=== PATIENT | female | born 1990 | race Caucasian/White ===

== ENCOUNTER 2017-01-19 17:42 | Emergency (ER) | payer OTHER ==
[2017-01-19 17:49] VITALS: BP 136/84; PULSE 88; RESP 18; TEMP 97.5
--- NOTE | 2017-01-19 18:14 | ED ---
Lower Extremity Injury HPI - General Chief Complaint: Extremity Injury, Lower Stated Complaint: ankle pain Time Seen by Provider: 01/19/17 18:03 Source: patient, RN notes reviewed Mode of arrival: ambulatory Limitations: no limitations - History of Present Illness Initial Comments: 26-year-old female presents emergency department with a chief complaint of right ankle injury. Patient states he was at the park on and she believes she sprained her ankle. Patient states that she's had pain and tenderness numbness over the lateral aspect. Patient states that it feels unsteady when walking. Patient states she has pain nausea vomiting with this. Patient states she has not had any other symptoms with this. Patient states she was concerned due to the pain so she thought that she should be reevaluated. Patient denies any recent fever, chills, shortness of breath, chest pain, back pain, abdominal pain, nausea vomiting, numbness or tingling, dysuria or hematuria, constipation or diarrhea, headaches or visual changes, or any other current symptoms. - Related Data Home Medications Medication Instructions Recorded Confirmed Acetaminophen Tab [Tylenol Tab] 325 mg PO Q4H PRN 01/19/17 01/19/17 Allergies Allergy/AdvReac Type Severity Reaction Status Date / Time No Known Allergies Allergy Verified 01/19/17 18:07 Review of Systems ROS Statement: Those systems with pertinent positive or pertinent negative responses have been documented in the HPI. ROS Other: All systems not noted in ROS Statement are negative. Past Medical History Past Medical History: No Reported History History of Any Multi-Drug Resistant Organisms: None Reported Past Surgical History: No Surgical Hx Reported Past Psychological History: No Psychological Hx Reported Smoking Status: Never smoker Past Alcohol Use History: None Reported Past Drug Use History: None Reported General Exam - General Exam Comments Initial Comments: General: The patient is awake and alert, in no distress, and does not appear acutely ill. Neck: The neck is supple, there is no tenderness. Cardiovascular: There is a regular rate and rhythm. No murmur, rub or gallop is appreciated. Respiratory: Lungs are clear to auscultation, respirations are non-labored, breath sounds are equal. No wheezes, stridor, rales, or rhonchi. Musculoskeletal: Sensation intact with 2+ pulses in her sign. Full Motion of right knee and right ankle. Patient has some tenderness over the lateral malleolus without significant swelling noted. 5 out of 5 muscle strength testing throughout. Patient is able to ambulate. Neurological: CN II-XII intact, There are no obvious motor or sensory deficits. Coordination appears grossly intact. Speech is normal. Skin: Skin is warm and dry and no rashes or lesions are noted. Psychiatric: Normal mood and affect. Limitations: no limitations Course Vital Signs 01/19/17 17:47 Temperature 97.5 F L Pulse Rate 88 Respiratory 18 Rate Blood Pressure 136/84 O2 Sat by Pulse 97 Oximetry Medical Decision Making - Medical Decision Making 26-year-old female presents with right ankle pain. At this time patient's x- ray is reviewed and negative. We discussed patient most likely has a right ankle sprain. We discussed follow-up return parameters all patient's questions. She stated that she understood and she is in agreement plan. This time she will be discharged home. - Radiology Data Radiology results: report reviewed, image reviewed Disposition Clinical Impression: Right ankle sprain Disposition: HOME SELF-CARE Condition: Stable Instructions: Ankle Sprain (ED) Additional Instructions: Please use medication as discussed. Please follow up with family doctor if symptoms have not improved over the next two days. Please return to the emergency room if your symptoms increase or worsen or for any other concerns. Referrals: Paige Brock MD [STAFF PHYSICIAN] - 1-2 days Time of Disposition: 18:43
--- NOTE | 2017-01-19 18:36 | XR ---
EXAMINATION TYPE: XR ankle complete RT DATE OF EXAM: 01/19/2017 6:24 PM COMPARISON: NONE HISTORY: 26 year-old female right ankle pain and swelling TECHNIQUE: 3 views FINDINGS: 5 mm corticated bone fragment below the fibula could represent a accessory ossicle or chronic ununite d fracture fragment related to remote injury. Large 2.5 cm interosseous lipoma or ganglion within the calcaneal body. There is a lucency seen along the posterior talus that could represent an os trigonum. Mild adjacent soft tissue swelling is present. Additional ankle joint effusion. Ankle mortise remains congruent with preservation of the distal tibiofibular overlap. Talar dome is i ntact. Small delineation to the Achilles tendon. IMPRESSION: 1. Lucency seen at the posterior talus could represent an os trigonum. However, if pain localizes to this area and there was injury, a nondisplaced Nunn fracture is an alternative consideration. 2. Large 2.5 cm intraosseous lipoma or cyst within the calcaneal body. 3. Nonspecific ankle joint effusion.
== END 2017-01-19 18:50 | disposition home or self-care (01) ==
LOC: EC 17:42
DX: S93.401A Sprain of unspecified ligament of right ankle, initial encounter (principal); R11.2 Nausea with vomiting, unspecified; X58.XXXA Exposure to other specified factors, initial encounter; Y92.830 Public park as the place of occurrence of the external cause
CPT/HCPCS: 99283

== ENCOUNTER 2017-02-25 15:35 | Emergency (ER) | payer OTHER ==
[2017-02-25] MEDS ORDERED: ONDANSETRON 4 MG/2 ML VIAL IVP STA (15:53)
[2017-02-25] MEDS ORDERED: SODIUM CHLORIDE 0.9% 1,000 ML IV STA (15:53)
--- NOTE | 2017-02-25 15:56 | ED ---
General Adult HPI - General Chief complaint: Nausea/Vomiting/Diarrhea Stated complaint: fatigue, Back pain,nausea Time Seen by Provider: 02/25/17 15:53 Source: patient, RN notes reviewed, old records reviewed Mode of arrival: ambulatory Limitations: no limitations - History of Present Illness Initial comments: This is a 26-year-old female the ER for evaluation today. Patient's reevaluation regard to of symptoms, symptoms included bowel pain with nausea and vomiting. Patient has tried 2 different antibiotics as well as antiemetics with no help. No travel history no fevers, no family members with similar similar sick symptoms, and patient has no known sick contacts - Related Data Home Medications Medication Instructions Recorded Confirmed Azithromycin [Zithromax Z-pack] See Taper PO DAILY 02/25/17 02/25/17 Allergies Allergy/AdvReac Type Severity Reaction Status Date / Time No Known Allergies Allergy Verified 02/25/17 15:48 Review of Systems ROS Statement: Those systems with pertinent positive or pertinent negative responses have been documented in the HPI. ROS Other: All systems not noted in ROS Statement are negative. Past Medical History Past Medical History: No Reported History History of Any Multi-Drug Resistant Organisms: None Reported Past Surgical History: No Surgical Hx Reported Past Psychological History: No Psychological Hx Reported Smoking Status: Never smoker Past Alcohol Use History: None Reported Past Drug Use History: None Reported General Exam Limitations: no limitations General appearance: alert, in no apparent distress Head exam: Present: atraumatic, normocephalic, normal inspection Eye exam: Present: normal appearance, PERRL, EOMI. Absent: scleral icterus, conjunctival injection, periorbital swelling ENT exam: Present: normal exam, mucous membranes moist Neck exam: Present: normal inspection. Absent: tenderness, meningismus, lymphadenopathy Respiratory exam: Present: normal lung sounds bilaterally. Absent: respiratory distress, wheezes, rales, rhonchi, stridor Cardiovascular Exam: Present: regular rate, normal rhythm, normal heart sounds. Absent: systolic murmur, diastolic murmur, rubs, gallop, clicks GI/Abdominal exam: Present: soft, normal bowel sounds. Absent: distended, tenderness, guarding, rebound, rigid Extremities exam: Present: normal inspection, full ROM, normal capillary refill. Absent: tenderness, pedal edema, joint swelling, calf tenderness Back exam: Present: normal inspection Neurological exam: Present: alert, oriented X3, CN II-XII intact Psychiatric exam: Present: normal affect, normal mood Skin exam: Present: warm, dry, intact, normal color. Absent: rash Course Vital Signs 02/25/17 02/25/17 15:40 16:45 Temperature 98.1 F 98.5 F Pulse Rate 85 80 Respiratory 18 16 Rate Blood Pressure 135/99 134/74 O2 Sat by Pulse 98 99 Oximetry - Reevaluation(s) Reevaluation #1: 02/25/17 17:28 Patient with no active vomiting on emergency room Medical Decision Making - Medical Decision Making 26 female here with nausea alone, appears to occur after meals, patient given antihistamine, GI medication, no acute distress labwork is normal ultrasound of gallbladder is negative, patient will follow up with GI for further evaluation of dietary issues, nausea - Lab Data Result diagrams: 02/25/17 16:15 02/25/17 16:15 Lab Results 02/25/17 02/25/17 02/25/17 Range/Units 16:15 16:15 16:15 WBC 5.1 (3.8-10.6) k/uL RBC 4.86 (3.80-5.40) m/uL Hgb 14.3 (11.4-16.0) gm/dL Hct 41.7 (34.0-46.0) % MCV 85.8 (80.0-100.0) fL MCH 29.4 (25.0-35.0) pg MCHC 34.3 (31.0-37.0) g/dL RDW 13.9 (11.5-15.5) % Plt Count 240 (150-450) k/uL Neutrophils % 66 % Lymphocytes % 24 % Monocytes % 7 % Eosinophils % 2 % Basophils % 1 % Neutrophils # 3.4 (1.3-7.7) k/uL Lymphocytes # 1.2 (1.0-4.8) k/uL Monocytes # 0.3 (0-1.0) k/uL Eosinophils # 0.1 (0-0.7) k/uL Basophils # 0.0 (0-0.2) k/uL PT (9.0-12.0) sec INR (<1.1) APTT (22.0-30.0) sec Sodium 141 (137-145) mmol/L Potassium 4.2 (3.5-5.1) mmol/L Chloride 105 (98-107) mmol/L Carbon Dioxide 26 (22-30) mmol/L Anion Gap 10 mmol/L BUN 10 (7-17) mg/dL Creatinine 0.71 (0.52-1.04) mg/dL Est GFR (MDRD) Af Amer >60 (>60 ml/min/1.73 sqM) Est GFR (MDRD) Non-Af >60 (>60 ml/min/1.73 sqM) Glucose 92 (74-99) mg/dL Plasma Lactic Acid Denny (0.7-2.0) mmol/L Calcium 9.7 (8.4-10.2) mg/dL Phosphorus 3.3 (2.5-4.5) mg/dL Magnesium 1.9 (1.6-2.3) mg/dL Total Bilirubin 0.7 (0.2-1.3) mg/dL AST 19 (14-36) U/L ALT 25 (9-52) U/L Alkaline Phosphatase 90 (38-126) U/L Total Creatine Kinase 58 (30-135) U/L CK-MB (CK-2) 0.4 (0.0-2.4) ng/mL CK-MB (CK-2) Rel Index 0.7 Troponin I <0.012 (0.000-0.034) ng/mL Total Protein 7.7 (6.3-8.2) g/dL Albumin 4.6 (3.5-5.0) g/dL Lipase 63 (23-300) U/L Urine Color Urine Appearance (Clear) Urine pH (5.0-8.0) Ur Specific [place] (1.001-1.035) Urine Protein (Negative) Urine Glucose (UA) (Negative) Urine Ketones (Negative) Urine Blood (Negative) Urine Nitrite (Negative) Urine Bilirubin (Negative) Urine Urobilinogen (<2.0) mg/dL Ur Leukocyte Esterase (Negative) Urine HCG, Qual (Not Detectd) 02/25/17 02/25/17 02/25/17 Range/Units 16:15 16:15 16:15 WBC (3.8-10.6) k/uL RBC (3.80-5.40) m/uL Hgb (11.4-16.0) gm/dL Hct (34.0-46.0) % MCV (80.0-100.0) fL MCH (25.0-35.0) pg MCHC (31.0-37.0) g/dL RDW (11.5-15.5) % Plt Count (150-450) k/uL Neutrophils % % Lymphocytes % % Monocytes % % Eosinophils % % Basophils % % Neutrophils # (1.3-7.7) k/uL Lymphocytes # (1.0-4.8) k/uL Monocytes # (0-1.0) k/uL Eosinophils # (0-0.7) k/uL Basophils # (0-0.2) k/uL PT 10.2 (9.0-12.0) sec INR 1.0 (<1.1) APTT 26.1 (22.0-30.0) sec Sodium (137-145) mmol/L Potassium (3.5-5.1) mmol/L Chloride (98-107) mmol/L Carbon Dioxide (22-30) mmol/L Anion Gap mmol/L BUN (7-17) mg/dL Creatinine (0.52-1.04) mg/dL Est GFR (MDRD) Af Amer (>60 ml/min/1.73 sqM) Est GFR (MDRD) Non-Af (>60 ml/min/1.73 sqM) Glucose (74-99) mg/dL Plasma Lactic Acid Denny (0.7-2.0) mmol/L Calcium (8.4-10.2) mg/dL Phosphorus (2.5-4.5) mg/dL Magnesium (1.6-2.3) mg/dL Total Bilirubin (0.2-1.3) mg/dL AST (14-36) U/L ALT (9-52) U/L Alkaline Phosphatase (38-126) U/L Total Creatine Kinase (30-135) U/L CK-MB (CK-2) (0.0-2.4) ng/mL CK-MB (CK-2) Rel Index Troponin I (0.000-0.034) ng/mL Total Protein (6.3-8.2) g/dL Albumin (3.5-5.0) g/dL Lipase (23-300) U/L Urine Color Light Yellow Urine Appearance Clear (Clear) Urine pH 7.0 (5.0-8.0) Ur Specific [place] 1.008 (1.001-1.035) Urine Protein Negative (Negative) Urine Glucose (UA) Negative (Negative) Urine Ketones Negative (Negative) Urine Blood Negative (Negative) Urine Nitrite Negative (Negative) Urine Bilirubin Negative (Negative) Urine Urobilinogen <2.0 (<2.0) mg/dL Ur Leukocyte Esterase Negative (Negative) Urine HCG, Qual Not Detected (Not Detectd) 02/25/17 Range/Units 16:15 WBC (3.8-10.6) k/uL RBC (3.80-5.40) m/uL Hgb (11.4-16.0) gm/dL Hct (34.0-46.0) % MCV (80.0-100.0) fL MCH (25.0-35.0) pg MCHC (31.0-37.0) g/dL RDW (11.5-15.5) % Plt Count (150-450) k/uL Neutrophils % % Lymphocytes % % Monocytes % % Eosinophils % % Basophils % % Neutrophils # (1.3-7.7) k/uL Lymphocytes # (1.0-4.8) k/uL Monocytes # (0-1.0) k/uL Eosinophils # (0-0.7) k/uL Basophils # (0-0.2) k/uL PT (9.0-12.0) sec INR (<1.1) APTT (22.0-30.0) sec Sodium (137-145) mmol/L Potassium (3.5-5.1) mmol/L Chloride (98-107) mmol/L Carbon Dioxide (22-30) mmol/L Anion Gap mmol/L BUN (7-17) mg/dL Creatinine (0.52-1.04) mg/dL Est GFR (MDRD) Af Amer (>60 ml/min/1.73 sqM) Est GFR (MDRD) Non-Af (>60 ml/min/1.73 sqM) Glucose (74-99) mg/dL Plasma Lactic Acid Denny 1.1 (0.7-2.0) mmol/L Calcium (8.4-10.2) mg/dL Phosphorus (2.5-4.5) mg/dL Magnesium (1.6-2.3) mg/dL Total Bilirubin (0.2-1.3) mg/dL AST (14-36) U/L ALT (9-52) U/L Alkaline Phosphatase (38-126) U/L Total Creatine Kinase (30-135) U/L CK-MB (CK-2) (0.0-2.4) ng/mL CK-MB (CK-2) Rel Index Troponin I (0.000-0.034) ng/mL Total Protein (6.3-8.2) g/dL Albumin (3.5-5.0) g/dL Lipase (23-300) U/L Urine Color Urine Appearance (Clear) Urine pH (5.0-8.0) Ur Specific [place] (1.001-1.035) Urine Protein (Negative) Urine Glucose (UA) (Negative) Urine Ketones (Negative) Urine Blood (Negative) Urine Nitrite (Negative) Urine Bilirubin (Negative) Urine Urobilinogen (<2.0) mg/dL Ur Leukocyte Esterase (Negative) Urine HCG, Qual (Not Detectd) - Radiology Data Radiology results: report reviewed (Ultrasound gallbladder is negative for acute disease), image reviewed Disposition Clinical Impression: Nausea & vomiting Disposition: HOME SELF-CARE Condition: Good Instructions: Acute Nausea and Vomiting (ED) Referrals: Meng Katz MD [STAFF PHYSICIAN] - 1-2 days
[2017-02-25 16:32] LABS: Appearance,Urine Clear (Clear); Bilirubin,Urine Negative (Negative); Glucose,Urine (UA) Negative (Negative); Ketones,Urine Negative (Negative); Leukocyte Esterase,Urine Negative (Negative); Nitrite,Urine Negative (Negative); Protein,Urine Negative (Negative); Specific Gravity,Urine 1.008 (1.001-1.035); UA Billing (MACRO vs. MICRO) CHEM; Urobilinogen,Urine <2.0 mg/dL (<2.0)
[2017-02-25 16:34] LABS: Basophils % (A) 1 %; CH 29.1; CHCM 34.1; Eosinophils # (A) 0.1 k/uL (0-0.7); Eosinophils % (A) 2 %; HCT 41.7 % (34.0-46.0); HDW 2.51; HGB 14.3 gm/dL (11.4-16.0); Luc # (Auto) 0.06; Luc % (Auto) 1; Lymphocytes # (A) 1.2 k/uL (1.0-4.8); Lymphocytes % (A) 24 %; MCH 29.4 pg (25.0-35.0); MCHC 34.3 g/dL (31.0-37.0); MCV 85.8 fL (80.0-100.0); Mean Platelet Volume 9.2; Monocytes # (A) 0.3 k/uL (0-1.0); Monocytes % (A) 7 %; Neutrophils # (A) 3.4 k/uL (1.3-7.7); Neutrophils % (A) 66 %; RBC 4.86 m/uL (3.80-5.40); RDW 13.9 % (11.5-15.5); WBC 5.1 k/uL (3.8-10.6); WBC (Perox) 4.76
[2017-02-25 16:39] LABS: Partial Thromboplastin Time 26.1 sec (22.0-30.0); Prothrombin Time 10.2 sec (9.0-12.0)
[2017-02-25 16:40] LABS: ALT 25 U/L (9-52); AST 19 U/L (14-36); Alkaline Phosphatase 90 U/L (38-126); Anion Gap 10 mmol/L; Blood Urea Nitrogen 10 mg/dL (7-17); Calcium 9.7 mg/dL (8.4-10.2); Carbon Dioxide 26 mmol/L (22-30); Chloride 105 mmol/L (98-107); Glucose 92 mg/dL (74-99); Magnesium 1.9 mg/dL (1.6-2.3); Non-African American GFR(MDRD) >60 (>60 ml/min/1.73 sqM); Phosphorous 3.3 mg/dL (2.5-4.5); Potassium 4.2 mmol/L (3.5-5.1); Sodium 141 mmol/L (137-145); Total Bilirubin 0.7 mg/dL (0.2-1.3); Total Protein 7.7 g/dL (6.3-8.2)
[2017-02-25 16:46] VITALS: RESP 16
[2017-02-25 16:50] LABS: Creatine Kinase 58 U/L (30-135)
[2017-02-25 17:03] LABS: Creatine Kinase MB 0.4 ng/mL (0.0-2.4); Troponin I <0.012 ng/mL (0.000-0.034)
--- NOTE | 2017-02-25 17:27 | US ---
EXAMINATION TYPE: US gallbladder DATE OF EXAM: 02/25/2017 COMPARISON: NONE CLINICAL HISTORY: Pain. Nausea,diarrhea, abdominal pain after eating EXAM MEASUREMENTS: Liver Length: 16.9 cm Gallbladder Wall: 0.3 cm CBD: 0.4 cm Right Kidney: 11.0 x 4.8 x 5.3 cm Technical limitations due to patient's body habitus and large amount of overlying bowel content Pancreas: Obscured by bowel gas Liver: only visualized intercostally, upper limits of normal in size Gallbladder: no evidence of stones Evidence for sonographic Johnson's sign: no CBD: appears wnl Right Kidney: no evidence of hydronephrosis IMPRESSION: No significant abnormality seen.
[2017-02-25 18:13] VITALS: BP 121/71; PULSE 81; TEMP 97.9
== END 2017-02-25 18:16 | disposition home or self-care (01) ==
LOC: EC 15:35
DX: R11.2 Nausea with vomiting, unspecified (principal); R10.9 Unspecified abdominal pain; M54.9 Dorsalgia, unspecified; R53.83 Other fatigue; R19.7 Diarrhea, unspecified
CPT/HCPCS: 36415; 80053; 82550; 82553; 83605; 83690; 83735; 84100; 84484; 85025; 85610; 85730; 81003; 81025; 87086; 76705; 99284; 96374; 96361; J2405

== ENCOUNTER → 2018-01-06 | Outpatient (CLI) | payer OTHER ==
--- NOTE | 2018-01-06 15:54 | US ---
EXAMINATION TYPE: Transabdominal DATE OF EXAM: 12/02/17 COMPARISON: NONE CLINICAL HISTORY: 27-year-old female Z36 Confirm Dates. Unsure of LMP EXAM PERFORMED: OB transabdominal FINDINGS: EXAM MEASUREMENTS: GESTATIONAL AGE / DATING Physician Established: Not yet established Dates by LMP: LMP unknown Dates by First Scan: No prior Dates by Current Scan for: (9 weeks/0 days) EDC: 08/11/2018 MATERNAL ANATOMY Uterus: 9.6 x 6.0 x 7.3 cm Right Ovary: 3.7 x 2.9 x 2.4cm Left Ovary: 2.7 x 2.2 x 2.5cm, 1.3cm cystic area noted Post CDS / Adnexa: wnl Presence of free fluid: no Presence of corpus luteal cyst: yes, 2.5cm right ovary Presence of subchorionic bleed: no GESTATION / SURVEY CRL: 2.3 (9 weeks/0 days) MSD: wnl Yolk Sac (normal less than 6mm): not seen Heart Rate: 182 bpm Rhythm: Normal IUP: Viable IUP Date of LMP: sometime in October IMPRESSION: 1. Single live intrauterine with gestational age of 9 weeks 0 days by crown-rump length. 2. Mild tachycardia (182 BPM). Short interval follow-up can be performed to ensure well-b eing. 3. Complete survey recommended at 18-20 weeks.
== END | disposition home or self-care (01) ==
LOC: RADUSWWP 14:10
PROVIDERS: ATTEND Obstetrics & Gynecology
DX: O76 Abnormality in fetal heart rate and rhythm complicating labor and delivery (principal); Z3A.09 9 weeks gestation of pregnancy
CPT/HCPCS: 76801

== ENCOUNTER → 2018-05-05 | Outpatient (CLI) | payer OTHER ==
[2018-05-05 13:41] LABS: HCT 36.1 % (34.0-46.0); HGB 11.9 gm/dL (11.4-16.0); MCH 30.5 pg (25.0-35.0); MCHC 33.1 g/dL (31.0-37.0); MCV 92.2 fL (80.0-100.0); Mean Platelet Volume 8.9; Platelet Count 214 k/uL (150-450); RBC 3.92 m/uL (3.80-5.40); RDW 14.6 % (11.5-15.5); WBC 6.5 k/uL (3.8-10.6)
== END | disposition home or self-care (01) ==
LOC: LABWHC1 12:10
PROVIDERS: ATTEND Obstetrics & Gynecology
DX: Z34.82 Encounter for supervision of other normal pregnancy, second trimester (principal); Z3A.00 Weeks of gestation of pregnancy not specified
CPT/HCPCS: 36415; 82950; 85027

== ENCOUNTER 2018-08-10 06:07 | Inpatient (IN) | payer OTHER ==
[2018-08-10] MEDS ORDERED: CITRIC ACID-SODIUM CITRATE 15 ML CUP PO ONE (06:24)
[2018-08-10] MEDS ORDERED: ceFAZolin IN SWFI 2 GM/20 ML SYRINGE IVP ONE (06:24)
[2018-08-10] MEDS ORDERED: LACTATED RINGERS 1,000 ML IV ONE (06:32)
[2018-08-10] MEDS: LACTATED RINGERS 1,000 ML IV SCH ×2 (06:38→21:51)
[2018-08-10 06:42] VITALS: BMI 39.4
[2018-08-10 06:43] LABS: Basophils % (A) 0 %; Eosinophils # (A) 0.1 k/uL (0-0.7); Eosinophils % (A) 2 %; HCT 33.5 % (34.0-46.0); HGB 11.1 gm/dL (11.4-16.0); Hypochromasia Slight; Lymphocytes # (A) 1.3 k/uL (1.0-4.8); Lymphocytes % (A) 30 %; MCHC 33.1 g/dL (31.0-37.0); MCV 87.5 fL (80.0-100.0); Mean Platelet Volume 9.5; Monocytes # (A) 0.2 k/uL (0-1.0); Monocytes % (A) 4 %; Neutrophils # (A) 2.7 k/uL (1.3-7.7); Neutrophils % (A) 62 %; Platelet Count 203 k/uL (150-450); Poikilocytosis Slight; RBC 3.83 m/uL (3.80-5.40); RDW 14.6 % (11.5-15.5); WBC 4.4 k/uL (3.8-10.6)
[2018-08-10] MEDS ORDERED: MORPHINE SULFATE (PF) 0.3 MG/0.3 ML SYR ONE (08:00)
[2018-08-10] MEDS ORDERED: NALBUPHINE 10 MG/ML VIAL (10ML MDV) ONE (08:00)
[2018-08-10] MEDS ORDERED: KETOROLAC 30 MG/ML 1 ML VIAL ONE (08:00)
[2018-08-10] MEDS ORDERED: ONDANSETRON 4 MG/2 ML VIAL ONE (08:00)
--- NOTE | 2018-08-10 08:53 | P.HPOB ---
History of Present Illness H&P Date: 08/10/18 Chief Complaint: primary low transverse 27 year old presents at 39 weeks 6 days for primary low transverse c- section for breech. The baby also has bilateral dilated renal pelvises. Review of Systems All systems: negative Constitutional: Denies chills, Denies fever Eyes: denies blurred vision, denies pain Ears, nose, mouth and throat: Denies headache, Denies sore throat Cardiovascular: Denies chest pain, Denies shortness of breath Respiratory: Denies cough Gastrointestinal: Denies abdominal pain, Denies diarrhea, Denies nausea, Denies vomiting Genitourinary: Denies dysuria, Denies hematuria Musculoskeletal: Denies myalgias Integumentary: Denies pruritus, Denies rash Neurological: Denies numbness, Denies weakness Psychiatric: Denies anxiety, Denies depression Endocrine: Denies fatigue, Denies weight change Past Medical History Past Medical History: No Reported History Additional Past Medical History / Comment(s): OB history: First was a vaginal delivery. This is her second and she has had care with nd since 8 weeks. O+, abs neg, Rub Imm, RPR NR, HEp B neg. weighted renal pelvises since her 20 week ultrasound. She's been getting biophysical profiles and NSTs which of all been reactive. Latest ultrasound showed 23 mm and 24 mm dilated renal pelvises respectively. History of Any Multi-Drug Resistant Organisms: None Reported Past Surgical History: No Surgical Hx Reported Additional Past Anesthesia/Blood Transfusion Reaction / Comment(s): never had anesthesia, no family problems with it Past Psychological History: No Psychological Hx Reported Smoking Status: Never smoker Past Alcohol Use History: None Reported Past Drug Use History: None Reported - Past Family History Mother Family Medical History: No Reported History Medications and Allergies Home Medications Medication Instructions Recorded Confirmed Type Pnv No.95/Ferrous Fum/Folic AC 1 each PO DAILY 08/06/18 08/10/18 History [ Multivitamin Tablet] Allergies Allergy/AdvReac Type Severity Reaction Status Date / Time No Known Allergies Allergy Verified 08/10/18 06:23 Exam Osteopathic Statement: *. No significant issues noted on an osteopathic structural exam other than those noted in the History and Physical/Consult. Vital Signs Temp Pulse Resp BP Pulse Ox 08/10/18 06:22 96 F L 102 H 16 139/87 100 Intake and Output 08/09/18 08/10/18 08/10/18 22:59 06:59 14:59 Other: Weight 104.326 kg Heart: Regular rate and rhythm Lungs: Clear to auscultation bilaterally Abdomen: Soft, nontender Extremities: Negative Homans sign Results Result Diagrams: 08/10/18 06:30 Abnormal Lab Results - Last 24 Hours (Table) 08/10/18 Range/Units 06:30 Hgb 11.1 L (11.4-16.0) gm/dL Hct 33.5 L (34.0-46.0) % Assessment and Plan (1) Breech presentation Current Visit: Yes Status: Acute Code(s): O32.1XX0 - MATERNAL CARE FOR BREECH PRESENTATION, UNSP SNOMED Code(s): 7343554 Plan: 1. Primary low transverse
--- NOTE | 2018-08-10 08:54 | P.OP ---
Date of Procedure: 08/10/18 Preoperative Diagnosis: 1. Breech presentation 2. Bilateral dilated renal pelvises Postoperative Diagnosis: Same Procedure(s) Performed: Primary low transverse Anesthesia: spinal Surgeon: Selena Ortega Substation Electrician Supervisor #1: Connor Hood Estimated Blood Loss (ml): 700 IV fluids (ml): 1,000 Urine output (ml): 100 Pathology: none sent Condition: stable Disposition: PACU Operative Findings: Viable male, Apgars 8, 9, weight 9 lbs. 2 oz. in footling breech presentation. Normal uterus tubes, ovaries. Description of Procedure: Patient was taken to the operating room where spinal anesthesia was found be adequate. She was prepped and draped in normal sterile fashion in dorsal supine position with a leftward tilt. Pfannenstiel skin incision was made the scalpel and carried through to the underlying layer of fascia with the scalpel. Fascia was incised in midline and carried bilaterally with the Trammell scissors. The superior aspect of the fascial incision was grasped with Siddhartha clamps elevated and the underlying rectus muscles dissected off with the Trammell's. Attention was then turned to inferior aspect of same incision which in a similar fashion was grasped tented up and the underlying rectus muscles dissected off with the Trammell's. The rectus muscles were the midline and the peritoneum was identified tented up and entered sharply with the scalpel. The incision was extended superiorly and inferiorly with good visualization of the bladder. The bladder blade was inserted and the vesicouterine peritoneum was incised the Metzenbaums then carried bilaterally and bladder flap created digitally. A low transverse incision was then made on the uterus with the scalpel. This was carried bilaterally and digital manner. 's head delivered atraumatically, nose and mouth bulb suctioned, cord clamped and cut, handed off to waiting nurses. Apgars 8,9, weight 9 lbs. 2 oz. Placenta delivered manually, intact with three-vessel cord. The uterus is exteriorized and cleared of all clots and debris. The uterine incision was closed with 0 Vicryl in a running locked fashion. Second layer of the same sutures used in imbricating fashion to obtain excellent hemostasis. Bladder flap was then reapproximated using 2-0 Vicryl in a running fashion. Both ovaries and tubes appeared normal. The uterus was placed back into the abdomen. The peritoneum was reapproximated using 2-0 Vicryl in a running fashion. The muscles were reapproximated using 2-0 Vicryl in interrupted fashion. The fascia was reapproximated using 0 Vicryl in a running fashion. The subcutaneous tissues closed with 3-0 Vicryl running fashion. The skin was closed fredi. Patient tolerated the procedure well, sponge and instrument counts were correct times 2 and she was taken to the recovery room in stable condition.
[2018-08-10] MEDS ORDERED: METOCLOPRAMIDE 5 MG/ML 2 ML VIAL IVP PRN (08:55)
[2018-08-10] MEDS ORDERED: KETOROLAC 30 MG/ML 1 ML VIAL IVP PRN (08:55)
[2018-08-10] MEDS ORDERED: NALOXONE 0.4 MG/ML 1 ML VIAL IV PRN (08:55)
[2018-08-10] MEDS ORDERED: ZOLPIDEM 5 MG TAB PO PRN (08:55)
[2018-08-10] MEDS ORDERED: diphenhydrAMINE 50 MG/ML 1 ML VIAL IVP PRN ×2 (08:55)
[2018-08-10] MEDS ORDERED: diphenhydrAMINE 25 MG CAP PO PRN (08:55)
[2018-08-10] MEDS ORDERED: HYDROcodone/APAP 7.5-325MG 1 EACH TAB PO PRN (08:55)
[2018-08-10] MEDS ORDERED: IBUPROFEN 600 MG TAB PO PRN (08:55)
[2018-08-10] MEDS ORDERED: LANOLIN CREAM 5 GM TUBE TOPICAL PRN (08:55)
[2018-08-10] MEDS ORDERED: diphenhydrAMINE 50 MG CAP PO PRN (08:55)
[2018-08-10] MEDS ORDERED: ACETAMINOPHEN TAB 325 MG TAB PO PRN (08:55)
[2018-08-10] MEDS ORDERED: ONDANSETRON 4 MG/2 ML VIAL IVP PRN (08:55)
[2018-08-10] MEDS ORDERED: LACTATED RINGERS 1,000 ML IV SCH (09:00)
[2018-08-10] MEDS ORDERED: OXYTOCIN 20 UNITS/1000 ML NS 1,000 ML IV SCH (09:00)
[2018-08-10] MEDS: SENNOSIDES-DOCUSATE SODIUM 1 EACH TAB PO SCH (21:51)
[2018-08-11 04:14] VITALS: RESP 16
--- NOTE | 2018-08-11 07:00 | P.PN ---
Progress Note - Text Progress Note Date: 08/11/18 Patient is postop day 1 section with Duramorph spinal. Patient has no complaints, VAS is a 1 out of 10 in severity. She is no complaints of motor sensory deficits. Patient is ambulating and tolerating diet well.
[2018-08-11 07:51] VITALS: BP 134/78; PULSE 103; TEMP 98.4
[2018-08-11 08:07] LABS: Basophils % (A) 0 %; Eosinophils # (A) 0.1 k/uL (0-0.7); Eosinophils % (A) 1 %; HCT 31.6 % (34.0-46.0); HGB 10.5 gm/dL (11.4-16.0); Hypochromasia Slight; Lymphocytes # (A) 1.1 k/uL (1.0-4.8); Lymphocytes % (A) 11 %; MCHC 33.1 g/dL (31.0-37.0); MCV 87.6 fL (80.0-100.0); Mean Platelet Volume 9.2; Monocytes # (A) 0.5 k/uL (0-1.0); Monocytes % (A) 5 %; Neutrophils # (A) 8.5 k/uL (1.3-7.7); Neutrophils % (A) 83 %; Platelet Count 194 k/uL (150-450); RBC 3.61 m/uL (3.80-5.40); RDW 14.6 % (11.5-15.5); WBC 10.3 k/uL (3.8-10.6)
[2018-08-11] MEDS: SENNOSIDES-DOCUSATE SODIUM 1 EACH TAB PO SCH (09:24)
== END 2018-08-11 13:00 | disposition home or self-care (01) | DRG 788 ==
LOC: 4FBP 06:07
PROVIDERS: ADMIT Obstetrics & Gynecology; ATTEND Obstetrics & Gynecology
PROC: 10D00Z1 Extraction of Products of Conception, Low, Open Approach (ICD-10-PCS; principal; 2018-08-10 08:00)
DX: O32.8XX0 Maternal care for other malpresentation of fetus, not applicable or unspecified (principal); Z37.0 Single live birth; Z3A.39 39 weeks gestation of pregnancy
CPT/HCPCS: 85025; 86850; 86900; 86901

== ENCOUNTER 2021-12-28 10:02 | Outpatient (CLI) | payer OTHER ==
[2021-12-28 10:48] LABS: Basophils % (A) 0 %; Eosinophils # (A) 0.1 k/uL (0-0.7); Eosinophils % (A) 2 %; HCT 36.9 % (34.0-46.0); HGB 12.1 gm/dL (11.4-16.0); Lymphocytes # (A) 0.9 k/uL (1.0-4.8); Lymphocytes % (A) 15 %; MCH 29.4 pg (25.0-35.0); MCHC 32.7 g/dL (31.0-37.0); MCV 89.7 fL (80.0-100.0); Mean Platelet Volume 10.2; Monocytes # (A) 0.3 k/uL (0-1.0); Monocytes % (A) 4 %; Neutrophils # (A) 4.8 k/uL (1.3-7.7); Neutrophils % (A) 78 %; Platelet Count 197 k/uL (150-450); RBC 4.11 m/uL (3.80-5.40); RDW 14.1 % (11.5-15.5); WBC 6.2 k/uL (3.8-10.6)
[2021-12-28 11:04] LABS: Appearance,Urine Clear (Clear); Bilirubin,Urine Negative (Negative); Blood,Urine Negative (Negative); Color,Urine Colorless; Glucose,Urine (UA) Negative (Negative); Ketones,Urine Negative (Negative); Leukocyte Esterase,Urine Negative (Negative); Nitrite,Urine Negative (Negative); PH, Urine 6.5 (5.0-8.0); Protein,Urine Negative (Negative); Specific Gravity,Urine 1.001 (1.001-1.035); Urobilinogen,Urine <2.0 mg/dL (<2.0)
[2021-12-28 11:04] LABS: INR 0.9 (<1.2); Prothrombin Time 9.8 sec (9.0-12.0)
[2021-12-28 11:07] LABS: Creatinine,Urine Random 7.4 mg/dL; Protein/Creatinine Ratio,Urine 1.757
[2021-12-28 11:17] LABS: ALT 14 U/L (4-34); AST 20 U/L (14-36); African American GFR (CKD) >90 (>60 ml/min/1.73 sqM); Blood Urea Nitrogen 7 mg/dL (7-17); LDH 391 U/L (313-618); Non-African American GFR(CKD) >90 (>60 ml/min/1.73 sqM)
[2021-12-28 11:54] VITALS: BP 140/91; PULSE 106; RESP 16; TEMP 98.1
--- NOTE | 2021-12-28 17:08 | P.MSEPDOC ---
Presenting Problems - Arrival Data Date of Arrival on Unit: 12/28/21 Time of Arrival on Unit: 10:12 Mode of Transport: Ambulatory - Complaint OB-Reason for Admission/Chief Complaint: PIH Medical History - Information : 2 Para: 1 Term: 1 : 0 Abortions: Spontaneous or Elective: 0 Number of Living Children: 1 - Gestational Age Gestational Age by MIKA (wks/days): 32 Weeks and 4 Days Review of Systems - Review of Systems Constitutional: No problems Breast: No problems ENT: No problems Cardiovascular: No problems Respiratory: No problems Gastrointestinal: No problems Genitourinary: No problems Musculoskeletal: No problems Neurological: No problems Skin: No problems Vital Signs - Temperature Temperature: 98.1 F Temperature Source: Oral - Pulse Right Brachial Pulse Rate: 106 Pulse Assessment Method: Automatic Cuff - Respirations Respiratory Rate: 16 Oxygen Delivery Method: Room Air - Blood Pressure Right Arm Blood Pressure: 140/91 Blood Pressure Mean: 107 Blood Pressure Source: Automatic Cuff Medical Screen Scoring - Assessment - Baby A Baseline FHR: 125 Heart Rate - NICHD Category: Category I (Normal) NST: Reactive Physician Notification - Physician Notified Physician Notified Date: 12/28/21 Physician Notified Time: 11:26 Physician: Selena Ortega New Order Received: Yes - Notification Comment Comment: sent pt home with 24 hour urine Maternal Triage Index - Maternal Triage Index Presenting for scheduled procedure w/no complaint: No - Stat/Priority 1 Stat Priority 1: No - Urgent/Priority 2 Urgent Priority 2: Yes Provider Notified: Selena Ortega Provider Notified Time: 11:26 Criteria Met for Priority 2: b/p 140/91 Disposition - Disposition OB Disposition: Discharge to home Discharge Date: 12/28/21 Discharge Time: 11:54 I agree with the RN Medical Screening Exam: Yes Case reviewed; plan agreed upon as documented in EMR&OBIX.: Yes Diagnosis: GESTATIONAL HTN W/O SIGNIFICANT PROTEINURIA, THIRD TRIMESTER
== END 2021-12-28 11:56 | disposition home or self-care (01) ==
LOC: FBPOP 10:02
PROVIDERS: ATTEND Obstetrics & Gynecology
DX: O13.3 Gestational [pregnancy-induced] hypertension without significant proteinuria, third trimester (principal); Z3A.32 32 weeks gestation of pregnancy
CPT/HCPCS: 59025; 82570; 84156; 82565; 83615; 84450; 84460; 84520; 84550; 85025; 85384; 85610; 85730; 81003; G0463; 99215

== ENCOUNTER 2021-12-29 13:55 | Outpatient (CLI) | payer OTHER ==
[2021-12-29 14:30] LABS: Total Volume 24 Hour,Urine 2650 mls (800-1800)
[2021-12-29 14:40] LABS: 24-hr Urine Specific Gravity 1.012 (1.001-1.035)
[2021-12-29 14:49] LABS: Total Protein 24 Hour,Urine 159 mg/24hr (42.0-225.0)
[2021-12-29 15:23] VITALS: BP 136/87; PULSE 100; RESP 16; TEMP 96.5
--- NOTE | 2021-12-29 22:59 | P.MSEPDOC ---
Presenting Problems - Arrival Data Date of Arrival on Unit: 12/29/21 Time of Arrival on Unit: 13:55 Mode of Transport: Ambulatory - Complaint OB-Reason for Admission/Chief Complaint: Other Comment: NST, Serial BP and 24 hr urine; Pt arrived c\script. Has urine with her, has been collecting since 12/28/21 @1330 Medical History - Information : 3 Para: 2 Number of Living Children: 2 - Gestational Age Gestational Age by MIKA (wks/days): 32 Weeks and 5 Days - History Complications: Prior Review of Systems - Review of Systems Constitutional: No problems Breast: No problems ENT: No problems Cardiovascular: No problems Respiratory: No problems Gastrointestinal: No problems Genitourinary: No problems Musculoskeletal: No problems Neurological: No problems Skin: No problems Vital Signs - Temperature Temperature: 96.5 F Temperature Source: Temporal Artery Scan - Pulse Right Sitting Brachial Pulse Rate: 100 Pulse Assessment Method: Automatic Cuff - Respirations Respiratory Rate: 16 Oxygen Delivery Method: Room Air O2 Sat by Pulse Oximetry: 99 - Blood Pressure Right Arm Sitting Blood Pressure: 136/87 Blood Pressure Mean: 103 Blood Pressure Source: Automatic Cuff Physician Notification - Physician Notified Physician Notified Date: 12/29/21 Physician Notified Time: 15:10 Physician: Selena Ortega New Order Received: Yes - Notification Comment Comment: Spk c\Dr. Ortega, advsd , 32 01/05, reports to triage for follow up and orders for NST, Serial BP and 24hr urine. Reviewed BPs and 24hr results. Orders rec'd to discharge pt home, review s/sx of PIH and advise pt RN from [facility] will follow up on Friday re: MFM appt. Maternal Triage Index - Maternal Triage Index Presenting for scheduled procedure w/no complaint: Yes - Scheduled/Requesting Priority 5 Scheduled/Requesting Priority 5: Yes Criteria Met for Priority 5: Order for NST, Serial BP and 24hr urine Disposition - Disposition OB Disposition: Discharge to home, Written follow up instructions reviewed Discharge Date: 12/29/21 Discharge Time: 15:15 I agree with the RN Medical Screening Exam: Yes Case reviewed; plan agreed upon as documented in EMR&OBIX.: Yes Diagnosis: GESTATIONAL HTN W/O SIGNIFICANT PROTEINURIA, THIRD TRIMESTER
== END 2021-12-29 15:15 | disposition home or self-care (01) ==
LOC: FBPOP 13:55
PROVIDERS: ATTEND Obstetrics & Gynecology
DX: O13.3 Gestational [pregnancy-induced] hypertension without significant proteinuria, third trimester (principal); Z3A.32 32 weeks gestation of pregnancy
CPT/HCPCS: 59025; 81050; 84156

== ENCOUNTER 2022-01-04 09:48 | Outpatient (CLI) | payer OTHER ==
[2022-01-04 10:39] LABS: Basophils % (A) 0 %; Eosinophils # (A) 0.1 k/uL (0-0.7); Eosinophils % (A) 2 %; HCT 35.8 % (34.0-46.0); HGB 11.8 gm/dL (11.4-16.0); Lymphocytes # (A) 0.8 k/uL (1.0-4.8); Lymphocytes % (A) 19 %; MCH 29.8 pg (25.0-35.0); MCHC 33.1 g/dL (31.0-37.0); MCV 90.2 fL (80.0-100.0); Mean Platelet Volume 9.7; Monocytes # (A) 0.2 k/uL (0-1.0); Monocytes % (A) 4 %; Neutrophils # (A) 3.1 k/uL (1.3-7.7); Neutrophils % (A) 73 %; Platelet Count 186 k/uL (150-450); RBC 3.97 m/uL (3.80-5.40); RDW 14.6 % (11.5-15.5); WBC 4.2 k/uL (3.8-10.6)
[2022-01-04 10:56] LABS: ALT 14 U/L (4-34); AST 19 U/L (14-36); African American GFR (CKD) >90 (>60 ml/min/1.73 sqM); Blood Urea Nitrogen 6 mg/dL (7-17); LDH 385 U/L (313-618); Non-African American GFR(CKD) >90 (>60 ml/min/1.73 sqM); Uric Acid 3.2 mg/dL (3.7-7.4)
[2022-01-04 10:59] LABS: Appearance,Urine Cloudy (Clear); Bacteria,Urine Rare /hpf; Bilirubin,Urine Negative (Negative); Blood,Urine Negative (Negative); Color,Urine Light Yellow; Glucose,Urine (UA) Negative (Negative); Ketones,Urine Negative (Negative); Leukocyte Esterase,Urine Negative (Negative); Mucus,Urine Rare /hpf; Nitrite,Urine Negative (Negative); PH, Urine 7.5 (5.0-8.0); Protein,Urine Negative (Negative); RBC,Urine <1 /hpf (0-5); Squamous Epithelial Cell,Urine 17 /hpf (0-4); Urobilinogen,Urine <2.0 mg/dL (<2.0); WBC,Urine 1 /hpf (0-5)
[2022-01-04 11:26] LABS: Creatinine,Urine Random 62.6 mg/dL; Protein/Creatinine Ratio,Urine 0.16
--- NOTE | 2022-01-04 12:05 | US ---
EXAMINATION TYPE: US OB BPP wo non-stress DATE OF EXAM: 01/04/2022 COMPARISON: NONE CLINICAL HISTORY: preeclampsia. EXAM PERFORMED: Transabdominal (TA) BPP PARAMETERS: PRESENTATION: Vertex HEART RATE: 134 bpm RHYTHM: Normal ZEFERINO: 11.9 DIAPHRAGM IMAGED: yes BPP SCORIN. Breathin (1 episode of breathing of 30 second duration in 30 minutes of scanning time) 2. Movement: 2 (at least 3 discrete body movements in 30 minutes) 3. Tone: 2 (1 episode of active flexion/extension of limb) 4. ZEFERINO: 2 (ZEFERINO index > 5cm) TOTAL SCORE: 8 / 8 1. Normal biophysical profile scoring 8 out of 8 points. 2. Cephalic presentation fetus with a heart rate measuring 134 bpm.
[2022-01-04 12:31] VITALS: BP 112/72; PULSE 104; RESP 17; TEMP 98.8
== END 2022-01-04 12:10 | disposition home or self-care (01) ==
LOC: FBPOP 09:48
PROVIDERS: ATTEND Obstetrics & Gynecology
DX: O14.93 Unspecified pre-eclampsia, third trimester (principal); Z3A.33 33 weeks gestation of pregnancy
CPT/HCPCS: 36415; 59025; 76819; 81001; 82565; 82570; 83615; 84156; 84450; 84460; 84520; 84550; 85025

== ENCOUNTER 2022-01-14 10:31 | Outpatient (CLI) | payer OTHER ==
[2022-01-14 11:03] VITALS: BP 137/94; RESP 16; TEMP 98.9
[2022-01-14 11:22] LABS: Appearance,Urine Clear (Clear); Bilirubin,Urine Negative (Negative); Blood,Urine Negative (Negative); Color,Urine Light Yellow; Glucose,Urine (UA) Negative (Negative); Ketones,Urine Negative (Negative); Leukocyte Esterase,Urine Negative (Negative); Nitrite,Urine Negative (Negative); PH, Urine 7.5 (5.0-8.0); Protein,Urine Negative (Negative); Specific Gravity,Urine 1.006 (1.001-1.035); Urobilinogen,Urine <2.0 mg/dL (<2.0)
[2022-01-14] MEDS ORDERED: BETAMET ACET-BETAMETH SOD PHOS 6 MG/ML MDV IM SCH (11:30)
[2022-01-14 11:37] LABS: Basophils % (A) 0 %; Eosinophils # (A) 0.1 k/uL (0-0.7); Eosinophils % (A) 2 %; HCT 38.7 % (34.0-46.0); HGB 12.1 gm/dL (11.4-16.0); Lymphocytes # (A) 0.9 k/uL (1.0-4.8); Lymphocytes % (A) 15 %; MCH 28.4 pg (25.0-35.0); MCHC 31.2 g/dL (31.0-37.0); MCV 91.1 fL (80.0-100.0); Mean Platelet Volume 9.6; Monocytes # (A) 0.2 k/uL (0-1.0); Monocytes % (A) 4 %; Neutrophils # (A) 4.5 k/uL (1.3-7.7); Neutrophils % (A) 77 %; Platelet Count 173 k/uL (150-450); RBC 4.25 m/uL (3.80-5.40); RDW 14.2 % (11.5-15.5); WBC 5.9 k/uL (3.8-10.6)
[2022-01-14 11:43] LABS: Creatinine,Urine Random 38.4 mg/dL; Protein/Creatinine Ratio,Urine 0.286
[2022-01-14 11:49] LABS: INR 0.9 (<1.2); Partial Thromboplastin Time 24.5 sec (22.0-30.0); Prothrombin Time 9.7 sec (9.0-12.0)
[2022-01-14 11:50] LABS: ALT 12 U/L (4-34); African American GFR (CKD) >90 (>60 ml/min/1.73 sqM); Blood Urea Nitrogen 5 mg/dL (7-17); Non-African American GFR(CKD) >90 (>60 ml/min/1.73 sqM); Uric Acid 2.7 mg/dL (3.7-7.4)
[2022-01-14 11:52] LABS: AST 26 U/L (14-36); LDH 707 U/L (313-618)
[2022-01-14 13:49] VITALS: PULSE 101
== END 2022-01-14 12:50 | disposition home or self-care (01) ==
LOC: FBPOP 10:31
PROVIDERS: ATTEND Obstetrics & Gynecology
DX: O13.3 Gestational [pregnancy-induced] hypertension without significant proteinuria, third trimester (principal); Z3A.35 35 weeks gestation of pregnancy
CPT/HCPCS: 59025; 96372; 82570; 84156; 82565; 83615; 84450; 84460; 84520; 84550; 85025; 85384; 85610; 85730; 81003; J0702

== ENCOUNTER 2022-01-15 11:43 | Outpatient (CLI) | payer OTHER ==
[2022-01-15] MEDS ORDERED: BETAMET ACET-BETAMETH SOD PHOS 6 MG/ML MDV IM ONE (12:00)
== END 2022-01-15 12:00 | disposition home or self-care (01) ==
LOC: FBPOP 11:43
PROVIDERS: ATTEND Obstetrics & Gynecology
DX: O13.3 Gestational [pregnancy-induced] hypertension without significant proteinuria, third trimester (principal); Z3A.35 35 weeks gestation of pregnancy
CPT/HCPCS: 96372; J0702

== ENCOUNTER 2022-01-29 06:18 | Inpatient (IN) | payer OTHER ==
[2022-01-29] MEDS ORDERED: CITRIC ACID-SODIUM CITRATE 15 ML CUP PO ONE (06:23)
[2022-01-29 07:02] LABS: Basophils % (A) 0 %; Eosinophils # (A) 0.1 k/uL (0-0.7); Eosinophils % (A) 1 %; HCT 34.8 % (34.0-46.0); HGB 11.3 gm/dL (11.4-16.0); Lymphocytes # (A) 1.2 k/uL (1.0-4.8); Lymphocytes % (A) 20 %; MCH 28.9 pg (25.0-35.0); MCHC 32.5 g/dL (31.0-37.0); Mean Platelet Volume 10.3; Monocytes # (A) 0.3 k/uL (0-1.0); Monocytes % (A) 6 %; Neutrophils # (A) 4.3 k/uL (1.3-7.7); Neutrophils % (A) 71 %; Platelet Count 172 k/uL (150-450); RBC 3.92 m/uL (3.80-5.40); RDW 14.3 % (11.5-15.5); WBC 6.1 k/uL (3.8-10.6)
[2022-01-29 07:12] LABS: ALT 15 U/L (4-34); African American GFR (CKD) >90 (>60 ml/min/1.73 sqM); Blood Urea Nitrogen 8 mg/dL (7-17); Non-African American GFR(CKD) >90 (>60 ml/min/1.73 sqM); Uric Acid 3.5 mg/dL (3.7-7.4)
[2022-01-29 07:40] LABS: Appearance,Urine Cloudy (Clear); Bacteria,Urine Rare /hpf; Bilirubin,Urine Negative (Negative); Blood,Urine Negative (Negative); Color,Urine Light Yellow; Glucose,Urine (UA) Negative (Negative); Ketones,Urine Negative (Negative); Leukocyte Esterase,Urine Moderate (Negative); Mucus,Urine Rare /hpf; Nitrite,Urine Negative (Negative); PH, Urine 6.5 (5.0-8.0); Protein,Urine Negative (Negative); RBC,Urine 1 /hpf (0-5); Specific Gravity,Urine 1.011 (1.001-1.035); Squamous Epithelial Cell,Urine 20 /hpf (0-4); Urobilinogen,Urine <2.0 mg/dL (<2.0); WBC,Urine 3 /hpf (0-5)
[2022-01-29 07:50] LABS: INR 0.9 (<1.2); Prothrombin Time 9.7 sec (9.0-12.0)
[2022-01-29 08:00] LABS: AST 32 U/L (14-36); LDH 766 U/L (313-618)
[2022-01-29] MEDS ORDERED: KETOROLAC 15 MG/ML 1 ML VIAL ONE (08:04)
[2022-01-29] MEDS ORDERED: MORPHINE SULFATE (PF) 0.3 MG/0.3 ML SYR ONE (08:04)
[2022-01-29] MEDS ORDERED: ePHEDrine 50 MG/ML 1 ML VIAL ONE (08:04)
[2022-01-29] MEDS ORDERED: OXYTOCIN 30 UNITS/500 ML NS BAG IV ONE (08:04)
[2022-01-29] MEDS ORDERED: OXYTOCIN 10 UNIT/ML 1 ML VIAL ONE (08:04)
[2022-01-29] MEDS ORDERED: NALBUPHINE 10 MG/ML (1 ML AMP) ONE (08:04)
[2022-01-29] MEDS ORDERED: ONDANSETRON 4 MG/2 ML VIAL ONE (08:04)
[2022-01-29] MEDS ORDERED: LANOLIN CREAM 5 GM TUBE TOPICAL PRN (08:34)
[2022-01-29] MEDS ORDERED: diphenhydrAMINE 50 MG CAP PO PRN (08:34)
[2022-01-29] MEDS ORDERED: ZOLPIDEM 5 MG TAB PO PRN (08:34)
[2022-01-29] MEDS ORDERED: diphenhydrAMINE 50 MG/ML 1 ML VIAL IVP PRN ×2 (08:34)
[2022-01-29] MEDS ORDERED: ONDANSETRON 4 MG/2 ML VIAL IVP PRN (08:34)
[2022-01-29] MEDS ORDERED: diphenhydrAMINE 25 MG CAP PO PRN (08:34)
[2022-01-29] MEDS ORDERED: SIMETHICONE 80 MG CHEWABLE PO PRN (08:34)
[2022-01-29] MEDS ORDERED: METOCLOPRAMIDE 5 MG/ML 2 ML VIAL IVP PRN (08:34)
[2022-01-29] MEDS ORDERED: NALOXONE 0.4 MG/ML 1 ML VIAL IV PRN (08:34)
[2022-01-29] MEDS ORDERED: OXYTOCIN 30 UNITS/500 ML NS 30 UNIT in SALINE 1 500ML.BAG IV SCH (08:45)
[2022-01-29 10:25] LABS: Creatinine,Urine Random 67.9 mg/dL; Protein/Creatinine Ratio,Urine 0.103
[2022-01-29] MEDS: ACETAMINOPHEN TAB 500 MG TAB PO SCH ×2 (13:14→18:44)
[2022-01-29] MEDS: LACTATED RINGERS 1,000 ML IV SCH ×2 (13:18→20:30)
[2022-01-29] MEDS: KETOROLAC 15 MG/ML 1 ML VIAL IVP SCH (21:41)
[2022-01-29] MEDS: SENNOSIDES-DOCUSATE SODIUM 1 EACH TAB PO SCH (22:16)
[2022-01-30] MEDS: ACETAMINOPHEN TAB 500 MG TAB PO SCH ×4 (00:32→23:31)
[2022-01-30] MEDS: LACTATED RINGERS 1,000 ML IV SCH (03:06)
[2022-01-30] MEDS: KETOROLAC 15 MG/ML 1 ML VIAL IVP SCH (03:46)
--- NOTE | 2022-01-30 07:08 | P.PN ---
Progress Note - Text Progress Note Date: 01/30/22 Postoperative day 1 status post section under spinal anesthesia, and i ntrathecal morphine given for postoperative analgesia, patient doing well, there is no anesthesia related complications, Patient had no headache, vital signs stable , Assessment and plan= postop day 1 status post , doing well there is no anesthesia related complication.
--- NOTE | 2022-01-30 08:02 | P.HPOB ---
History of Present Illness H&P Date: 01/29/22 Chief Complaint: gestational hypertenstion, previous 31-year-old presents at 37 weeks and 5 days for a repeat low transverse C- section. She's had elevated blood pressures for the last several weeks and history of preeclampsia. Review of Systems All systems: negative Constitutional: Denies chills, Denies fever Eyes: denies blurred vision, denies pain Ears, nose, mouth and throat: Denies headache, Denies sore throat Cardiovascular: Denies chest pain, Denies shortness of breath Respiratory: Denies cough Gastrointestinal: Denies abdominal pain, Denies diarrhea, Denies nausea, Denies vomiting Genitourinary: Denies dysuria, Denies hematuria Musculoskeletal: Denies myalgias Integumentary: Denies pruritus, Denies rash Neurological: Denies numbness, Denies weakness Psychiatric: Denies anxiety, Denies depression Endocrine: Denies fatigue, Denies weight change Past Medical History Past Medical History: No Reported History History of Any Multi-Drug Resistant Organisms: None Reported Past Surgical History: No Surgical Hx Reported Past Anesthesia/Blood Transfusion Reactions: No Reported Reaction Additional Past Anesthesia/Blood Transfusion Reaction / Comment(s): never had a nesthesia, no family problems with it Past Psychological History: No Psychological Hx Reported Smoking Status: Never smoker Past Alcohol Use History: None Reported Past Drug Use History: None Reported - Past Family History Mother Family Medical History: No Reported History Medications and Allergies Home Medications Medication Instructions Recorded Confirmed Type Pnv No.95/Ferrous Fum/Folic AC 1 each PO DAILY 12/29/21 01/29/22 History [ Multivitamin Tablet] Allergies Allergy/AdvReac Type Severity Reaction Status Date / Time No Known Allergies Allergy Verified 01/29/22 06:23 Exam Osteopathic Statement: *. No significant issues noted on an osteopathic structural exam other than those noted in the History and Physical/Consult. Vital Signs Temp Pulse Resp BP Pulse Ox 01/30/22 03:53 98.0 F 83 16 105/69 97 01/30/22 00:00 98.2 F 77 17 101/63 97 01/29/22 20:00 97.1 F L 82 17 127/85 99 01/29/22 15:23 98.2 F 86 16 113/74 01/29/22 12:00 97.9 F 90 16 114/72 01/29/22 10:50 98 16 124/74 01/29/22 10:20 95 16 121/71 01/29/22 09:50 101 H 16 126/65 99 01/29/22 09:35 81 16 120/61 97 01/29/22 09:20 98 16 108/58 98 01/29/22 09:05 106 H 16 113/74 98 01/29/22 08:50 98 F 102 H 16 116/58 98 Intake and Output 01/29/22 01/30/22 01/30/22 22:59 06:59 14:59 Output Total 1999 Balance -1999 Output: Urine 1999 Uretheral (Dominguez) 800 Other: # Voids 1 1 Heart: Regular rate and rhythm Lungs: Clear to auscultation bilaterally Abdomen: Soft, nontender Extremities: Negative Homans sign Results Result Diagrams: 01/29/22 06:40 01/29/22 06:40 Abnormal Lab Results - Last 24 Hours (Table) 01/29/22 Range/Units 06:40 Creatinine 0.50 L (0.52-1.04) mg/dL Uric Acid 3.5 L (3.7-7.4) mg/dL Lactate Dehydrogenase 766 H (313-618) U/L Assessment and Plan (1) Gestational hypertension Current Visit: Yes Status: Acute Code(s): O13.9 - GESTATIONAL HTN W/O SIGNIFICANT PROTEINURIA, UNSP TRIMESTER SNOMED Code(s): 02775411 (2) 37 weeks gestation of Current Visit: Yes Status: Acute Code(s): Z3A.37 - 37 WEEKS GESTATION OF SNOMED Code(s): 79210478 (3) Previous section Current Visit: Yes Status: Acute Code(s): Z98.891 - HISTORY OF UTERINE SCAR FROM PREVIOUS SURGERY SNOMED Code(s): 172930064 Plan: 1. Repeat low transverse
--- NOTE | 2022-01-30 08:04 | P.OP ---
Date of Procedure: 01/29/22 Preoperative Diagnosis: 1. G2 3 P2 at 37 weeks and 5 days 2. Gestational hypertension 3. Previous section Postoperative Diagnosis: 1. G2 3 P2 at 37 weeks and 5 days 2. Gestational hypertension 3. Previous section; cervix is closed Procedure(s) Performed: Repeat low transverse Anesthesia: spinal Surgeon: Selena Ortega Military Technician #1: Connor Hood Estimated Blood Loss (ml): 300 IV fluids (ml): 500 Urine output (ml): 200 Pathology: other Condition: stable Disposition: floor Operative Findings: Normal uterus, tubes, ovaries Description of Procedure: Patient was taken to the operating room where spinal anesthesia was found be adequate. She was prepped and draped in normal sterile fashion in dorsal supine position with a leftward tilt. Pfannenstiel skin incision was made the scalpel and carried through to the underlying layer of fascia with the scalpel. Fascia was incised in midline and carried bilaterally with the Trammell scissors. The superior aspect of the fascial incision was grasped with Siddhartha clamps elevated and the underlying rectus muscles dissected off with the Trammell's. Attention was then turned to inferior aspect of same incision which in a similar fashion was grasped tented up and the underlying rectus muscles dissected off with the Trammell's. The rectus muscles were the midline and the peritoneum was identified tented up and entered sharply with the scalpel. The incision was extended superiorly and inferiorly with good visualization of the bladder. The bladder blade was inserted and the vesicouterine peritoneum was incised the Metzenbaums then carried bilaterally and bladder flap created digitally. A low transverse incision was then made on the uterus with the scalpel. This was carried bilaterally and digital manner. Infant's head delivered atraumatically, nose and mouth bulb suctioned, cord clamped and cut, infant handed off to waiting nurses. Apgars 6,6,8 weight 6 lbs. 6 oz. Placenta delivered manually, intact with three-vessel cord. The uterus is exteriorized and cleared of all clots and debris. The uterine incision was closed with 0 Vicryl in a running locked fashion. Second layer of the same sutures used in imbricating fashion to obtain excellent hemostasis. Bladder flap was then reapproximated using 2-0 Vicryl in a running fashion. Both ovaries and tubes appeared normal. The uterus was placed back into the abdomen. The peritoneum was reapproximated using 2-0 Vicryl in a running fashion. The muscles were reapproximated using 2- 0 Vicryl in interrupted fashion. The fascia was reapproximated using 0 Vicryl in a running fashion. The subcutaneous tissues closed with 3-0 Vicryl running fashion. The skin was closed fredi. Patient tolerated the procedure well, s ponge and instrument counts were correct times 2 and she was taken to the recovery room in stable condition.
--- NOTE | 2022-01-30 08:06 | P.PNOBGPC ---
Subjective - Subjective Principal diagnosis: Status post repeat low transverse postoperative day #1 Interval history: Patient seen and examined. Denies nausea, vomiting, chest pain, shortness of breath or any calf pain. Patient reports: Reports appetite normal, Reports voiding normally, Reports pain well controlled, Reports ambulating normally Thomson: doing well Objective - Vital Signs Latest vital signs: Vital Signs Temp Pulse Resp BP Pulse Ox 01/30/22 03:53 98.0 F 83 16 105/69 97 01/30/22 00:00 98.2 F 77 17 101/63 97 01/29/22 20:00 97.1 F L 82 17 127/85 99 01/29/22 15:23 98.2 F 86 16 113/74 01/29/22 12:00 97.9 F 90 16 114/72 01/29/22 10:50 98 16 124/74 01/29/22 10:20 95 16 121/71 01/29/22 09:50 101 H 16 126/65 99 01/29/22 09:35 81 16 120/61 97 01/29/22 09:20 98 16 108/58 98 01/29/22 09:05 106 H 16 113/74 98 01/29/22 08:50 98 F 102 H 16 116/58 98 Intake and Output 01/29/22 01/30/22 01/30/22 22:59 06:59 14:59 Output Total 1999 Balance -1999 Output: Urine 2000 Uretheral (Dominguez) 800 Other: # Voids 1 1 - Exam Lungs: bilateral: normal Chest: Normal S1, Normal S2 Extremities: Present: normal Abdomen: Present: normal appearance, soft. Absent: distention, tenderness Incision: Present: normal, dry, intact Uterus: Present: normal, firm Assessment and Plan (1) Gestational hypertension Current Visit: Yes Status: Resolved Code(s): O13.9 - GESTATIONAL HTN W/O SIGNIFICANT PROTEINURIA, UNSP TRIMESTER SNOMED Code(s): 44907735 (2) 37 weeks gestation of Current Visit: Yes Status: Resolved Code(s): Z3A.37 - 37 WEEKS GESTATION OF SNOMED Code(s): 11378460 (3) Previous section Current Visit: Yes Status: Resolved Code(s): Z98.891 - HISTORY OF UTERINE SCAR FROM PREVIOUS SURGERY SNOMED Code(s): 775590805 (4) Status post repeat low transverse section Current Visit: Yes Status: Acute Code(s): Z98.891 - HISTORY OF UTERINE SCAR FROM PREVIOUS SURGERY SNOMED Code(s): 946502001 Plan: 1. Increase ambulation 2. po pain medication
[2022-01-30 08:08] LABS: Basophils % (A) 0 %; Eosinophils # (A) 0.1 k/uL (0-0.7); Eosinophils % (A) 1 %; HCT 33.6 % (34.0-46.0); HGB 10.9 gm/dL (11.4-16.0); Hypochromasia Slight; Lymphocytes # (A) 0.8 k/uL (1.0-4.8); Lymphocytes % (A) 11 %; MCH 29.5 pg (25.0-35.0); MCHC 32.5 g/dL (31.0-37.0); MCV 90.9 fL (80.0-100.0); Mean Platelet Volume 10.3; Monocytes # (A) 0.3 k/uL (0-1.0); Monocytes % (A) 4 %; Neutrophils % (A) 83 %; Platelet Count 179 k/uL (150-450); RDW 14.8 % (11.5-15.5); WBC 7.2 k/uL (3.8-10.6)
[2022-01-30] MEDS: SENNOSIDES-DOCUSATE SODIUM 1 EACH TAB PO SCH ×2 (09:05→19:42)
[2022-01-30] MEDS: IBUPROFEN 600 MG TAB PO SCH ×2 (09:05→15:44)
--- NOTE | 2022-01-31 08:12 | P.PNOBGPC ---
Subjective - Subjective Principal diagnosis: Status post repeat low transverse postop day #2 Interval history: Sincerely and examined. Denies nausea, vomiting, chest pain, shortness of breath or calf pain. Her baby is having some breathing issues in the special care nursery the patient would like to stay another day. Patient reports: Reports appetite normal, Reports voiding normally, Reports pain well controlled, Reports ambulating normally Objective - Vital Signs Latest vital signs: Vital Signs Temp Pulse Resp BP Pulse Ox 01/30/22 23:36 97.5 F L 92 18 133/84 99 01/30/22 16:00 98.2 F 78 17 140/89 01/30/22 09:00 98.1 F 93 16 127/91 97 - Exam Lungs: bilateral: normal Chest: Normal S1, Normal S2 Extremities: Present: normal Abdomen: Present: normal appearance, soft. Absent: distention, tenderness Incision: Present: normal, dry, intact Uterus: Present: normal, firm Assessment and Plan (1) Gestational hypertension Current Visit: Yes Status: Resolved Code(s): O13.9 - GESTATIONAL HTN W/O SIGNIFICANT PROTEINURIA, UNSP TRIMESTER SNOMED Code(s): 37547115 (2) 37 weeks gestation of Current Visit: Yes Status: Resolved Code(s): Z3A.37 - 37 WEEKS GESTATION OF SNOMED Code(s): 87228717 (3) Previous section Current Visit: Yes Status: Resolved Code(s): Z98.891 - HISTORY OF UTERINE SCAR FROM PREVIOUS SURGERY SNOMED Code(s): 684919909 (4) Status post repeat low transverse section Current Visit: Yes Status: Acute Code(s): Z98.891 - HISTORY OF UTERINE SCAR FROM PREVIOUS SURGERY SNOMED Code(s): 492115032 Plan: 1. Pain medication 2. Increase ambulation
[2022-01-31] MEDS: SENNOSIDES-DOCUSATE SODIUM 1 EACH TAB PO SCH ×2 (08:18→19:42)
[2022-01-31] MEDS: IBUPROFEN 600 MG TAB PO SCH ×3 (08:19→20:48)
[2022-01-31] MEDS: ACETAMINOPHEN TAB 500 MG TAB PO SCH ×3 (11:20→23:39)
[2022-02-01] MEDS: IBUPROFEN 600 MG TAB PO SCH ×4 (02:44→13:45)
[2022-02-01] MEDS: ACETAMINOPHEN TAB 500 MG TAB PO SCH ×3 (05:47→13:45)
--- NOTE | 2022-02-01 08:12 | P.DS ---
Providers Date of admission: 01/29/22 06:18 Expected date of discharge: 02/01/22 Attending physician: Selena Ortega Consults: 01/29/22 19:39 Consult Physician Routine Consulting Provider: Benny Jolly Consult Reason/Comments: Abdominal pain Do you want consulting provider notified?: Yes Primary care physician: Stated None - Discharge Diagnosis(es) (1) Gestational hypertension Current Visit: Yes Status: Resolved (2) 37 weeks gestation of Current Visit: Yes Status: Resolved (3) Previous section Current Visit: Yes Status: Resolved (4) Status post repeat low transverse section Current Visit: Yes Status: Acute Hospital Course: Patient presented for repeat low transverse at 37 weeks and 5 days due to gestational hypertension. her course was uncomplicated. She denies nausea, vomiting, chest pain, shortness of breath or calf pain. Her pain is well-controlled. Her incision is clean, dry, intact. She'll be discharged home in stable condition to follow-up with me in one week. Plan - Discharge Summary New Discharge Prescriptions: New oxyCODONE HCL [OxyIR] 5 mg PO Q4HR PRN #18 tab PRN Reason: Pain Scale 4 - 6 Ibuprofen [Motrin] 600 mg PO Q6HR #30 tab No Action Pnv No.95/Ferrous Fum/Folic AC [ Multivitamin Tablet] 1 each PO DAILY Discharge Medication List Pnv No.95/Ferrous Fum/Folic AC [ Multivitamin Tablet] 1 each PO DAILY 12/29/21 [History] Ibuprofen [Motrin] 600 mg PO Q6HR #30 tab 02/01/22 [Rx] oxyCODONE HCL [OxyIR] 5 mg PO Q4HR PRN #18 tab 02/01/22 [Rx] Follow up Appointment(s)/Referral(s): Selena Ortega DO [Doctor of Osteopathic Medicine] - 03/11/22 10:45 am (C/S post op appt-02/06/2022@9:00am) Discharge Disposition: HOME SELF-CARE
[2022-02-01] MEDS: SENNOSIDES-DOCUSATE SODIUM 1 EACH TAB PO SCH (09:37)
[2022-02-01 16:50] VITALS: BP 153/93; PULSE 88; RESP 16; TEMP 98.3
== END 2022-02-01 16:30 | disposition home or self-care (01) | DRG 788 ==
LOC: 4FBP 06:18
PROVIDERS: ADMIT Obstetrics & Gynecology; ATTEND Obstetrics & Gynecology
PROC: 10D00Z1 Extraction of Products of Conception, Low, Open Approach (ICD-10-PCS; principal; 2022-01-29 08:04)
DX: O13.9 Gestational [pregnancy-induced] hypertension without significant proteinuria, unspecified trimester (principal); O14.94 Unspecified pre-eclampsia, complicating childbirth; O34.211 Maternal care for low transverse scar from previous cesarean delivery; Z37.0 Single live birth; Z3A.37 37 weeks gestation of pregnancy
CPT/HCPCS: 81001; 82565; 82570; 83615; 84156; 84450; 84460; 84520; 84550; 85025; 85384; 85610; 85730; 86850; 86900; 86901; 88307